=== PATIENT | female | born 1965 | race Caucasian/White ===

== ENCOUNTER 2022-06-09 12:03 | Inpatient (IN) | payer MEDICAID, OTHER ==
[~2022-06-09] VITALS: Ht 167.6 cm; Wt 76.2 kg
[2022-06-09 12:11] VITALS: BP_SYST 119
[2022-06-09 13:01] LABS: BASOPHILS # (AUTO) 0.1 K/uL (0.0-0.2); BASOPHILS % (AUTO) 1.2 % (0.0-2.0); EOSINOPHILS # (AUTO) 0.1 K/uL (0.0-0.4); EOSINOPHILS % (AUTO) 1.3 % (0.0-4.0); HEMOGLOBIN 12.6 g/dL (12.0-16.0); LYMPHOCYTES % (AUTO) 21.4 % (20.5-51.5); MEAN CORPUSCULAR HEMOGLOBIN 30 pg (27-31); MEAN CORPUSCULAR HGB CONC 34 % (32-36); MEAN CORPUSCULAR VOLUME 87 fL (79.0-98.0); MONOCYTES # (AUTO) 0.4 K/uL (0.0-1.0); MONOCYTES % (AUTO) 4.5 % (1.7-9.3); NEUTROPHILS # (AUTO) 6.6 K/uL (1.8-7.7); NEUTROPHILS % (AUTO) 71.6 % (40.0-70.0); PLATELET COUNT (AUTO) 213 K/uL (130-430); RED BLOOD CELL COUNT(AUTO) 4.23 MIL/uL (4.2-6.2); WHITE BLOOD COUNT (AUTO) 9.3 K/uL (4.8-10.8)
[2022-06-09 13:19] LABS: UREA NITROGEN, BLOOD 21 mg/dL (8-21)
[2022-06-09 13:40] LABS: ANION GAP 9 (5-15); CALCIUM 8.6 mg/dL (8.4-11.0); CHLORIDE 109 mmol/L (98-107); CREATININE 0.92 mg/dL (0.55-1.30); GLUCOSE 121 mg/dL (70-99); POTASSIUM 4.7 mmol/L (3.5-5.1); SODIUM SERUM 142 mmol/L (136-145)
[2022-06-09 13:49] LABS: ALANINE AMINOTRANSFERASE 105 U/L (12-78); ALBUMIN 3.5 g/dL (3.4-4.8); ASPARTATE AMINOTRANSFERASE 42 U/L (10-37); GFR AFRICAN AMERICAN 81 mL/min (>90); TOTAL BILIRUBIN 0.5 mg/dL (0.0-1.0)
[2022-06-09] MEDS ORDERED: ASPIRIN 81 MG TAB.CHEW PO ONE (14:15)
[2022-06-09 18:40] VITALS: BP_SYST 126
[2022-06-09 19:48] VITALS: BP_SYST 126
[2022-06-09 20:00] VITALS: BP_SYST 126
[2022-06-09] MEDS ORDERED: FURO-149 PO (20:22)
[2022-06-09] MEDS ORDERED: ASPI-1155 PO (20:22)
[2022-06-09] MEDS ORDERED: CARV12.548 PO (20:22)
[2022-06-09] MEDS: NORMAL SALINE 5 ML DISP.SYRIN IVF SCH (22:07)
[2022-06-10 00:36] VITALS: BP_SYST 117
[2022-06-10] MEDS ORDERED: SACU1TAB PO (00:41)
[2022-06-10] MEDS: NORMAL SALINE 5 ML DISP.SYRIN IVF SCH ×3 (05:47→22:17)
[2022-06-10 07:02] LABS: BASOPHILS # (AUTO) 0.1 K/uL (0.0-0.2); BASOPHILS % (AUTO) 1.1 % (0.0-2.0); EOSINOPHILS # (AUTO) 0.2 K/uL (0.0-0.4); EOSINOPHILS % (AUTO) 1.9 % (0.0-4.0); HEMATOCRIT 37.7 % (36-48); HEMOGLOBIN 12.7 g/dL (12.0-16.0); LYMPHOCYTES # (AUTO) 2.3 K/uL (1.0-5.5); LYMPHOCYTES % (AUTO) 29.1 % (20.5-51.5); MEAN CORPUSCULAR HEMOGLOBIN 29 pg (27-31); MEAN CORPUSCULAR HGB CONC 34 % (32-36); MEAN CORPUSCULAR VOLUME 88 fL (79.0-98.0); MONOCYTES # (AUTO) 0.3 K/uL (0.0-1.0); MONOCYTES % (AUTO) 4.3 % (1.7-9.3); NEUTROPHILS # (AUTO) 5.1 K/uL (1.8-7.7); NEUTROPHILS % (AUTO) 63.6 % (40.0-70.0); PLATELET COUNT (AUTO) 194 K/uL (130-430); RED BLOOD CELL COUNT(AUTO) 4.32 MIL/uL (4.2-6.2); RED CELL DISTRIBUTION WIDTH 14.3 % (9.0-15.0); WHITE BLOOD COUNT (AUTO) 7.9 K/uL (4.8-10.8)
[2022-06-10 07:26] LABS: ALBUMIN 3.3 g/dL (3.4-4.8); CREATININE 0.93 mg/dL (0.55-1.30); POTASSIUM 4.7 mmol/L (3.5-5.1); TOTAL BILIRUBIN 0.4 mg/dL (0.0-1.0)
[2022-06-10 08:00] VITALS: BP_SYST 125
[2022-06-10] MEDS ORDERED: CARVEDILOL 12.5 MG TABLET (COREG) PO SCH (09:00)
[2022-06-10] MEDS: FUROSEMIDE 40 MG TABLET PO SCH ×2 (09:45→22:18)
[2022-06-10] MEDS: SACUBITRIL/VALSARTAN 24 MG-26 MG 1 TABLET PO SCH ×2 (09:45→22:31)
[2022-06-10] MEDS: ASPIRIN 81 MG TAB.CHEW PO SCH (09:45)
[2022-06-10] MEDS ORDERED: CARVEDILOL 6.25 MG TABLET (COREG) PO ONE (10:15)
[2022-06-10] MEDS ORDERED: FUROSEMIDE 20 MG/2 ML VIAL IVP ONE (10:15)
[2022-06-10 12:00] VITALS: BP_SYST 121
[2022-06-10 16:00] VITALS: BP_SYST 98
[2022-06-10] MEDS ORDERED: traMADol HCL HCL 50 MG TABLET (ULTRAM) PO PRN (19:00)
[2022-06-10] MEDS ORDERED: ACETAMINOPHEN 325 MG TABLET PO PRN (19:00)
[2022-06-10] MEDS: CARVEDILOL 12.5 MG TABLET (COREG) PO SCH (22:14)
[2022-06-11 01:41] VITALS: BP_SYST 118
[2022-06-11 04:00] VITALS: BP_SYST 110
[2022-06-11] MEDS: NORMAL SALINE 5 ML DISP.SYRIN IVF SCH (06:17)
[2022-06-11 06:46] LABS: CREATININE 1.11 mg/dL (0.55-1.30); POTASSIUM 3.8 mmol/L (3.5-5.1)
[2022-06-11 06:54] LABS: ALBUMIN 3.5 g/dL (3.4-4.8); CALCIUM 8.9 mg/dL (8.4-11.0); TOTAL BILIRUBIN 0.7 mg/dL (0.0-1.0)
[2022-06-11 08:00] VITALS: BP_SYST 96
[2022-06-11] MEDS: FUROSEMIDE 40 MG TABLET PO SCH (09:00)
[2022-06-11] MEDS: SACUBITRIL/VALSARTAN 24 MG-26 MG 1 TABLET PO SCH (09:00)
[2022-06-11] MEDS: ASPIRIN 81 MG TAB.CHEW PO SCH (09:02)
[2022-06-11] MEDS: CARVEDILOL 12.5 MG TABLET (COREG) PO SCH (09:03)
[2022-06-11 12:15] VITALS: BP_SYST 107
[2022-06-11 15:11] VITALS: BP_SYST 105
[2022-06-11 15:17] VITALS: BP_SYST 101
[2022-06-11] MEDS ORDERED: CARVEDILOL 12.5 MG TABLET (COREG) PO SCH (21:00)
== END 2022-06-11 15:55 | disposition home or self-care (01) | DRG 314 ==
LOC: SED 12:03 → STU 15:01
PROVIDERS: ADMIT Internal Medicine; ATTEND Internal Medicine
PROC: 4B02XTZ Measurement of Cardiac Defibrillator, External Approach (ICD-10-PCS; principal; 2022-06-11)
DX: T82.897A Other specified complication of cardiac prosthetic devices, implants and grafts, initial encounter (principal); I50.41 Acute combined systolic (congestive) and diastolic (congestive) heart failure; I24.8 Other forms of acute ischemic heart disease; I42.0 Dilated cardiomyopathy; I50.9 Heart failure, unspecified; Z20.822 Contact with and (suspected) exposure to COVID-19; Z79.899 Other long term (current) drug therapy; Z86.16 Personal history of COVID-19; Z87.891 Personal history of nicotine dependence; Z95.810 Presence of automatic (implantable) cardiac defibrillator; R00.0 Tachycardia, unspecified
CPT/HCPCS: 36415; 71045; 80053; 83880; 84484; 85025; 93005; 93306; 99285; G0378; J1940